=== PATIENT | female | born 1965 | race Caucasian/White ===

== ENCOUNTER 2017-01-29 15:03 | Emergency (ER) | payer BC, OTHER ==
[2017-01-29 15:03] VITALS: BMI 37.8
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
[2017-01-29 15:33] VITALS: BP 126/83; PULSE 68; TEMP 97.7; O2SAT 98
[2017-01-29 16:19] VITALS: RESP 20
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
--- NOTE | 2017-01-29 16:36 | RAD ---
PROCEDURE: Cervical Spine Radiographs. HISTORY: Pain. COMPARISON: None. FINDINGS: BONES: There is straightening of the cervical spine with loss of normal cervical lordosis. Vertebral alignment is normal. Vertebral height is maintained. There is diffuse bone demineralization. . There is no acute fracture or spondylolisthesis. The craniocervical junction is normal. The atlantoaxial joint is normal. DISC SPACES: There is mild multilevel degenerative disc disease at C5-6 with anterior spurring, reduced disc height and mild facet arthropathy. The remaining disc heights are preserved. SOFT TISSUES: Normal. No prevertebral soft tissue swelling. OTHER FINDINGS: None. IMPRESSION: No acute fracture or spondylolisthesis. Straightening of the cervical spine may be positional or related to muscle spasm. Mild degenerative disc disease at C5-6.
== END 2017-01-29 16:18 | disposition home or self-care (01) ==
LOC: C.ER 15:03
DX: S13.4XXA Sprain of ligaments of cervical spine, initial encounter (principal); S80.02XA Contusion of left knee, initial encounter; M54.5 Low back pain; V43.52XA Car driver injured in collision with other type car in traffic accident, initial encounter; Y92.410 Unspecified street and highway as the place of occurrence of the external cause

== ENCOUNTER 2017-11-13 11:18 | Emergency (ER) | payer BC ==
[2017-11-13 11:18] VITALS: BMI 33.9
[2017-11-13 11:30] VITALS: RESP 18
[2017-11-13 12:40] LABS: SQUAMOUS EPITHIAL 5 /hpf (0-5); URINE BILIRUBIN NEGATIVE (NEGATIVE); URINE BLOOD NEGATIVE (NEGATIVE); URINE CLARITY Clear (Clear); URINE COLOR Straw (YELLOW); URINE GLUCOSE (UA) NORMAL (Normal); URINE LEUKOCYTE ESTERASE NEG Leu/uL (Negative); URINE PROTEIN NEGATIVE (NEGATIVE); URINE UROBILINOGEN NORMAL mg/dL (0.2-1.0)
--- NOTE | 2017-11-13 12:44 | RAD ---
PROCEDURE: CHEST RADIOGRAPH, 1 VIEW HISTORY: chest pain COMPARISON: No prior study available for comparison FINDINGS: LUNGS: Poor inspiration with low lung volumes, crowded bronchovascular markings and mild bibasilar atelectasis. Questionable small left effusion PLEURA: As above. No pneumothorax the seen. CARDIOVASCULAR: Heart appears enlarged. OSSEOUS STRUCTURES: No significant abnormalities. VISUALIZED UPPER ABDOMEN: Normal. OTHER FINDINGS: None. IMPRESSION: Poor inspiration with low lung volumes, crowded bronchovascular markings and mild bibasilar atelectasis. Questionable small left effusion.
[2017-11-13 13:02] LABS: BASO % 0.6 % (0.0-2.0); EOS % 0.6 % (0.0-4.0); HEMOGLOBIN 12.4 g/dL (11.0-16.0); LYMPH # 2.6 K/uL (1.0-4.3); LYMPH % 39.7 % (20.0-40.0); MEAN CELL VOLUME 77.7 fL (81.0-99.0); MEAN CORPUSCULAR HEMOGLOBIN 25.5 pg (27.0-31.0); MEAN CORPUSCULAR HGB CONC 32.8 g/dL (33.0-37.0); MONO # 0.5 K/uL (0.0-0.8); MONO % 7.6 % (0.0-10.0); NEUT # 3.4 K/uL (1.8-7.0); NEUT % 51.5 % (50.0-75.0); RBC 4.85 Mil/uL (3.80-5.20); RED CELL DISTRIBUTION WIDTH 14.3 % (11.5-14.5); WHITE BLOOD COUNT 6.7 K/uL (4.8-10.8)
[2017-11-13 13:18] LABS: ALB/GLOB RATIO 1.2 (1.0-2.1); ALBUMIN 4.2 g/dL (3.5-5.0); ALT/SGPT 16 U/L (9-52); AST/SGOT 27 U/L (14-36); BLOOD UREA NITROGEN 19 mg/dL (7-17); CALCIUM 9.3 mg/dl (8.6-10.4); GFR AFRICAN-AMERICAN > 60; GFR NON-AFRICAN AMERICAN > 60
--- NOTE | 2017-11-13 14:01 | CT ---
PROCEDURE: CT Abdomen and Pelvis without intravenous contrast HISTORY: right flank pain COMPARISON: None. TECHNIQUE: Without contrast.. Contrast Dose: 0 Radiation dose: Total exam DLP = Total exam DLP = 1300.63 mGy-cm. This CT exam was performed using one or more of the following dose reduction techniques: Automated exposure control, adjustment of the mA and/or kV according to patient size, and/or use of iterative reconstruction technique. FINDINGS: LOWER THORAX: Unremarkable. LIVER: Unremarkable. No gross lesion or ductal dilatation. GALLBLADDER AND BILE DUCTS: Unremarkable. PANCREAS: Unremarkable. No gross lesion or ductal dilatation. SPLEEN: Unremarkable. ADRENALS: Unremarkable. No mass. KIDNEYS AND URETERS: Two small left renal calculi, nonobstructing, 2-3 mm each. 2 mm nonobstructing right upper pole renal calculus. No hydronephrosis. No ureteral calculus. No renal mass. VASCULATURE: Unremarkable. No aortic aneurysm. BOWEL: Unremarkable. No obstruction. No gross mural thickening. APPENDIX: Unremarkable. Normal appendix. PERITONEUM: Unremarkable. No free fluid. No free air. LYMPH NODES: Unremarkable. No enlarged lymph nodes. BLADDER: Unremarkable. REPRODUCTIVE: Normal uterus BONES: No acute fracture. OTHER FINDINGS: None. IMPRESSION: Very small bilateral nonobstructing renal calculi. Otherwise unremarkable examination.
[2017-11-13 14:54] VITALS: BP 141/87; PULSE 57; TEMP 97.9; O2SAT 98
--- NOTE | 2017-11-13 16:13 | C.PDOC ---
History Of Present Illness 52 y/o female presents to the ER complaining of sharp, substernal chest pain and non-productive cough which has been present since yesterday. Patient states that she also has vague right flank pain which has been present for the past 1 week.Patient denies having fever, SOB, hematuria, and dysuria. Chief Complaint (Nursing): Chest Pain History Per: Patient History/Exam Limitations: no limitations Onset/Duration Of Symptoms: Days Current Symptoms Are (Timing): Still Present Severity: Moderate Past Medical History Reviewed: Historical Data, Nursing Documentation, Vital Signs Vital Signs: Last Vital Signs Temp 97.9 F 11/13/17 14:52 Pulse 57 L 11/13/17 14:52 Resp 18 11/13/17 14:52 BP 141/87 11/13/17 14:52 Pulse Ox 98 11/13/17 16:32 - Medical History PMH: HTN, Hyperlipidemia Denies: Depression, Chronic Kidney Disease Other Surgeries: Hx of surgeries - [facility] Procedures APPLICATION OF SPLINT (03/22/03) CLOSURE SKIN & SUBCUTANEOUS NEC (01/05/14) INJECT/INFUSE NEC (11/24/12) TETANUS TOXOID ADMINIST (01/05/14) Family History: States: No Known Family Hx - Social History Hx Tobacco Use: No Hx Alcohol Use: No Hx Substance Use: No - Immunization History Hx Tetanus Toxoid Vaccination: No Hx Influenza Vaccination: No Hx Pneumococcal Vaccination: No Review Of Systems Except As Marked, All Systems Reviewed And Found Negative. Constitutional: Negative for: Fever, Chills Cardiovascular: Positive for: Chest Pain Respiratory: Positive for: Cough. Negative for: Shortness of Breath Gastrointestinal: Positive for: Abdominal Pain Genitourinary: Negative for: Dysuria, Hematuria Physical Exam - Physical Exam Appears: Non-toxic, No Acute Distress Skin: Normal Color, Warm Head: Atraumatic, Normacephalic Eye(s): bilateral: Normal Inspection Nose: Normal Oral Mucosa: Moist Throat: Normal, No Erythema, No Exudate Neck: Supple Chest: Symmetrical Cardiovascular: Rhythm Regular Respiratory: Normal Breath Sounds Gastrointestinal/Abdominal: Soft, No Tenderness Neurological/Psych: Oriented x3, Normal Speech ED Course And Treatment - Laboratory Results Result Diagrams: 11/13/17 12:54 11/13/17 12:54 O2 Sat by Pulse Oximetry: 98 (RA) Pulse Ox Interpretation: Normal - Other Rad CXR X-Ray: Viewed By Me, Read By Radiologist Interpretation: PROCEDURE: CHEST RADIOGRAPH, 1 VIEW. HISTORY: chest pain. COMPARISON: No prior study available for comparison. FINDINGS: LUNGS: Poor inspiration with low lung volumes, crowded bronchovascular markings and mild bibasilar atelectasis. Questionable small left effusion. PLEURA: As above. No pneumothorax the seen. CARDIOVASCULAR: Heart appears enlarged. OSSEOUS STRUCTURES: No significant abnormalities. VISUALIZED UPPER ABDOMEN: Normal. OTHER FINDINGS: None. IMPRESSION: Poor inspiration with low lung volumes, crowded bronchovascular markings and mild bibasilar atelectasis. Questionable small left effusion. - CT Scan/US CT-Abd&Pelv Other Rad Studies (CT/US): Read By Radiologist, Radiology Report Reviewed CT/US Interpretation: PROCEDURE: CT Abdomen and Pelvis without intravenous contrast. HISTORY: right flank pain. COMPARISON: None. TECHNIQUE: Without contrast.. Contrast Dose: 0. Radiation dose: Total exam DLP =. Total exam DLP = 1300.63 mGy-cm. This CT exam was performed using one or more of the following dose reduction techniques: Automated exposure control, adjustment of the mA and/or kV according to patient size, and/or use of iterative reconstruction technique. FINDINGS: LOWER THORAX: Unremarkable. LIVER: Unremarkable. No gross lesion or ductal dilatation. GALLBLADDER AND BILE DUCTS : Unremarkable. PANCREAS: Unremarkable. No gross lesion or ductal dilatation. SPLEEN: Unremarkable. ADRENALS: Unremarkable. No mass. KIDNEYS AND URETERS: Two small left renal calculi, nonobstructing, 2-3 mm each. 2 mm nonobstructing right upper pole renal calculus. No hydronephrosis. No ureteral calculus. No renal mass. VASCULATURE: Unremarkable. No aortic aneurysm. BOWEL : Unremarkable. No obstruction. No gross mural thickening. APPENDIX: Unremarkable. Normal appendix. PERITONEUM: Unremarkable. No free fluid. No free air. LYMPH NODES: Unremarkable. No enlarged lymph nodes. BLADDER: Unremarkable. REPRODUCTIVE: Normal uterus. BONES: No acute fracture. OTHER FINDINGS: None. IMPRESSION: Very small bilateral nonobstructing renal calculi. Otherwise unremarkable examination. Progress Note: Labs, UA, CXR, CT-Abd & Pelv ordered. Disposition - Disposition Referrals: [facility] Christin Req, [Non-Staff] - Disposition: HOME/ ROUTINE Disposition Time: 14:00 Condition: GOOD Additional Instructions: Thank you for letting us take care of you today. The emergency medical care you received today was directed at your acute symptoms. If you were prescribed any medication, please fill it and take as directed. It may take several days for your symptoms to resolve. Return to the Emergency Department if your symptoms worsen, do not improve, or if you have any other problems. Please contact your doctor or call one of the physicians/clinics you have been referred to that are listed on the Patient Visit Information form that is included in your discharge packet. Bring any paperwork you were given at discharge with you along with any medications you are taking to your follow up visit. Our treatment cannot replace ongoing medical care by a primary care provider (PCP) outside of the emergency department. Thank you for allowing the [facility] team to be part of your care today. Follow up with your doctor this week for re-evaluation and further management. Prescriptions: Azithromycin [Zithromax] 250 mg PO DAILY #6 tab Ranitidine HCl [Zantac] 150 mg PO BID #20 tablet Instructions: Chest Pain That Is Not Caused by the Heart (DC) Forms: [employer] ([place]) - Clinical Impression Clinical Impression: Non-cardiac chest pain - Scribe Statement The provider has reviewed the documentation as recorded by the Andres Olvera Provider Attestation: All medical record entries made by the Elginibemmett were at my direction and personally dictated by me. I have reviewed the chart and agree that the record accurately reflects my personal performance of the history, physical exam, medical decision making, and the department course for this patient. I have also personally directed, reviewed, and agree with the discharge instructions and disposition.
--- NOTE | 2017-11-14 11:32 | CARD ---
APPROVED REPORT EKG Measurement Heart [id number] <Conclusion> Normal sinus rhythm Cannot rule out Anterior infarct, age undetermined Abnormal ECG
== END 2017-11-13 14:54 | disposition home or self-care (01) ==
LOC: C.ER 11:18
DX: R07.89 Other chest pain (principal); I10 Essential (primary) hypertension; E78.5 Hyperlipidemia, unspecified